=== PATIENT | female | born 1980 | race Caucasian/White ===

== ENCOUNTER 2022-04-26 10:44 | Emergency (ER) | payer MEDICAID, SELFPAY ==
[2022-04-26 11:15] VITALS: BP 127/85; PULSE 101; RESP 18; TEMP 37.1; O2SAT 100; BMI 29.5
[2022-04-26 11:35] LABS: MANUAL DIFF FLAG NO
[2022-04-26 11:38] LABS: Basophils Percent Auto 0.1 % (0-2); Eosinophils Percent Auto 0.1 % (0-4); Hematocrit 31.9 % (37.0-47.0); Imm Gran Abs Auto 0.17 X10*3/uL (0.00-0.03); Lymphocytes Absolute Auto 0.8 X10*3/uL (1.2-4.9); Lymphocytes Percent Auto 4.7 % (20-40); Mean Corpuscular HGB Conc 34.5 g/dl (31.0-35.0); Mean Corpuscular Hemoglobin 32.3 pg (27.0-33.0); Mean Corpuscular Volume 93.5 fL (80.0-98.0); Mean Platelet Volume 9.6 fL (9.4-12.3); Monocytes Absolute Auto 1.2 X10*3/uL (0.1-1.2); Monocytes Percent Auto 7.1 % (2-11); Neutrophils Absolute Auto 14.2 x10*3/uL (2.0-8.3); Platelet Count 171 X10*3/uL (160-400); Red Blood Count 3.41 X10*6/uL (4.20-5.50); Red Cell Distribution Width 12.1 % (11.0-16.0); White Blood Count 16.3 X10*3/uL (4.8-10.8)
[2022-04-26 11:55] LABS: Alanine Aminotransferase 19 U/L (0-31); Albumin Level 3.9 g/dL (3.5-5.0); Alkaline Phosphatase 76 U/L (39-117); Anion Gap 13 (12-20); Aspartate Amino Transferase 22 U/L (5-31); Bilirubin Direct 0.3 mg/dL (0.0-0.5); Bilirubin Total 0.5 mg/dL (0.0-1.0); Blood Urea Nitrogen 8 mg/dL (9-16); Calcium 8.8 mg/dL (8.4-10.2); Carbon Dioxide 28 mmol/L (22-29); Chloride 98 mmol/L (96-108); Creatinine Clr Calc Pharmacy 95.5; Estimated Glomerular Filt Rate > 60; Glucose Random 145 mg/dL (60-115); Lipase < 4 U/L (8-78); Potassium 3.9 mmol/L (3.3-5.1); Sodium 135 mmol/L (135-145); Total Protein 6.8 g/dL (6.5-8.0)
--- NOTE | 2022-04-26 16:33 | PC.NURSE ---
pt actively vomiting in wr, rn to given zofran sublingual
[2022-04-26] MEDS: Ondansetron ODT 4 MG TAB.RAPDIS TRANSLINGU (16:37)
== END 2022-04-26 21:23 | disposition left against medical advice (07) ==
PROVIDERS: Emergency Provider Emergency Medicine
DX: R11.10 Vomiting, unspecified (principal); R10.9 Unspecified abdominal pain; Z79.899 Other long term (current) drug therapy
CPT/HCPCS: 36415; 80048; 80076; 83690; 85025; 99282

== ENCOUNTER → 2022-10-30 09:31 | Outpatient (BNVA) | payer MEDICAID, SELFPAY | PROVIDERS: PCP Physician Assistant; Visit Provider Nurse Practitioner Psychiatric/Mental Health | DX: F11.20 Opioid dependence, uncomplicated (principal) | CPT/HCPCS: 99202 ==

== ENCOUNTER → 2022-11-06 14:48 | Outpatient (BNVA) | payer MEDICAID, SELFPAY | PROVIDERS: PCP Physician Assistant; Visit Provider Nurse Practitioner Psychiatric/Mental Health | DX: F11.20 Opioid dependence, uncomplicated (principal) | CPT/HCPCS: 80305; 99212 ==

== ENCOUNTER → 2022-11-19 16:08 | Outpatient (BNVA) | payer MEDICAID, SELFPAY | PROVIDERS: PCP Physician Assistant; Visit Provider Nurse Practitioner Psychiatric/Mental Health | DX: Z51.81 Encounter for therapeutic drug level monitoring (principal); F11.20 Opioid dependence, uncomplicated | CPT/HCPCS: 99212 ==

== ENCOUNTER → 2022-12-10 15:57 | Outpatient (BNVA) | payer MEDICAID, SELFPAY | PROVIDERS: PCP Physician Assistant; Visit Provider Nurse Practitioner Psychiatric/Mental Health | DX: Z13.89 Encounter for screening for other disorder (principal) ==

== ENCOUNTER → 2023-02-08 15:11 | Outpatient (BNVA) | payer OTHER, SELFPAY | PROVIDERS: PCP Physician Assistant; Visit Provider Nurse Practitioner Psychiatric/Mental Health | DX: F11.20 Opioid dependence, uncomplicated (principal); Z51.81 Encounter for therapeutic drug level monitoring; Z79.899 Other long term (current) drug therapy | CPT/HCPCS: 99212 ==

== ENCOUNTER → 2023-03-15 15:01 | Outpatient (BNVA) | payer OTHER, SELFPAY | PROVIDERS: PCP Physician Assistant; Visit Provider Nurse Practitioner Psychiatric/Mental Health | DX: Z51.81 Encounter for therapeutic drug level monitoring (principal); F11.20 Opioid dependence, uncomplicated | CPT/HCPCS: 99212 ==

== ENCOUNTER 2023-04-16 16:00 | Outpatient (AMB) | payer MEDICAID, SELFPAY ==
--- NOTE | 2023-04-16 16:01 | MHC.OFFVIS ---
Intake Vital Signs 04/16/23 16:07 BP 124/72 Blood Pressure Location Lt radial Position Sitting Pulse 74 Pulse Source Pulse Oximeter Pulse Oximetry (%) 96 Oxygen Delivery Method Room Air Intake Visit Reasons: MAT Visit Intake Note: the patient presents for a mat visit Technical Lead Required: No Allergies amoxicillin Allergy (Verified 04/16/23 16:08) Vomiting Do you need a note to return to daycare/school/sports/work: No HPI MAT Visit HPI Details Patient presents for OUD follow up Tearful during visit, sharing challenges in her relationship. Reporting her partner is not longer living with her, and is unable to return to her home. Reports DCF came to her home. Denies any issues with recovery, her mother is staying with her but will be returning home soon. Review of Systems Const Reports as per HPI Physical Exam Vital Signs: Last Vital Signs Pulse 74 04/16/23 16:07 BP 124/72 04/16/23 16:07 Pulse Ox 96 04/16/23 16:07 Oxygen Delivery Method Room Air 04/16/23 16:07 Const General: cooperative, healthy appearing and anxious Psych Appearance: well kempt Mental Status: mental status grossly normal Speech and movement: Clear speech present Affect: Sad affect present Attitude: cooperative Thought process: Normal thought process present Thought content: Normal thought content present Insight: Good insight present (Psych) Judgement: Good judgement present (Psych) Assessment & Plan Assessment & Plan (1) Opioid use disorder: Code(s): F11.90 - Opioid use, unspecified, uncomplicated Plan: continue suboxone at current dose, changed from 8mg+4mg to 12mg film relapse prevention discussion follow up 4 weeks Medications: New buprenorphine-naloxone 12-3 mg (Suboxone) 1 film sublingual DAILY 30 ea 0RF Coding Level of Care Code Est Pt Level 3 (47730) Diagnoses Opioid use disorder F11.90
[2023-04-16 16:07] VITALS: BP 124/72; PULSE 74; O2SAT 96
== END 2023-04-16 16:30 | disposition home or self-care (01) ==
LOC: HO.HCC 16:00
PROVIDERS: PCP Physician Assistant; Visit Provider Nurse Practitioner Psychiatric/Mental Health
DX: F11.90 Opioid use, unspecified, uncomplicated (principal)
CPT/HCPCS: 99213

== ENCOUNTER → 2023-04-16 16:00 | Outpatient (BNVA) | payer MEDICAID, SELFPAY | PROVIDERS: PCP Physician Assistant; Visit Provider Nurse Practitioner Psychiatric/Mental Health | DX: F11.20 Opioid dependence, uncomplicated (principal); Z63.79 Other stressful life events affecting family and household; Z51.81 Encounter for therapeutic drug level monitoring; Z79.899 Other long term (current) drug therapy | CPT/HCPCS: 99213 ==

== ENCOUNTER 2023-05-14 13:23 | Outpatient (AMB) | payer MEDICAID, SELFPAY ==
--- NOTE | 2023-05-14 13:32 | A.OFFVIS_ITS ---
Intake Intake Visit Reasons: MAT Visit Allergies amoxicillin Allergy (Verified 04/16/23 16:08) Vomiting HPI MAT Visit HPI Details Pt presents for OUD treatment follow up Currently being prescribed Suboxone 12 mg daily Denies any side effects related to medication Engaged in outpt treatment Requesting dose be changed back to 8 mg and 4 mg. Patient states that things are going well at home and feels that DCF is being very supportive. Review of Systems Const Reports as per HPI and Reports no additional complaints Physical Exam Const General: cooperative, healthy appearing and anxious Psych Appearance: well kempt Mental Status: mental status grossly normal Speech and movement: Clear speech present Affect: normal affect Attitude: cooperative Thought process: Normal thought process present Thought content: Normal thought content present Insight: Good insight present (Psych) Judgement: Good judgement present (Psych) Assessment & Plan Assessment & Plan (1) Opioid use disorder: Code(s): F11.90 - Opioid use, unspecified, uncomplicated Plan: * continue suboxone at current dose * relapse prevention discussion * follow up 4 weeks Medications: New buprenorphine-naloxone 4-1 mg (Suboxone) total of 12mg daily 1 film sublingual DAILY 30 ea 0RF buprenorphine-naloxone 8-2 mg (Suboxone) 1 film sublingual DAILY 30 ea 0RF Discontinued buprenorphine-naloxone 12-3 mg (Suboxone) Discontinued Reason: None 1 film sublingual DAILY 30 ea 0RF Coding Level of Care Code Est Pt Level 3 (75405) Diagnoses Opioid use disorder F11.90
== END 2023-05-14 13:52 | disposition home or self-care (01) ==
LOC: HO.HCC 13:23
PROVIDERS: PCP Physician Assistant; Visit Provider Nurse Practitioner Psychiatric/Mental Health
DX: F11.90 Opioid use, unspecified, uncomplicated (principal)
CPT/HCPCS: 99213

== ENCOUNTER → 2023-05-14 13:23 | Outpatient (BNVA) | payer MEDICAID, SELFPAY | PROVIDERS: PCP Physician Assistant; Visit Provider Nurse Practitioner Psychiatric/Mental Health | DX: F11.20 Opioid dependence, uncomplicated (principal) | CPT/HCPCS: 99213 ==

== ENCOUNTER 2023-06-18 13:42 | Outpatient (AMB) | payer MEDICAID, SELFPAY ==
[2023-06-18 14:18] VITALS: BP 120/70; PULSE 74; O2SAT 97
--- NOTE | 2023-06-18 14:18 | A.OFFVIS_ITS ---
Intake Vital Signs 06/18/23 14:18 BP 120/70 Blood Pressure Location Lt radial Position Sitting Pulse 74 Pulse Source Pulse Oximeter Pulse Oximetry (%) 97 Oxygen Delivery Method Room Air Intake Visit Reasons: MAT Visit Intake Note: the patient presents for a mat visit Obstetrics Tech Required: No Allergies amoxicillin Allergy (Verified 06/18/23 14:19) Vomiting Do you need a note to return to daycare/school/sports/work: No HPI MAT Visit HPI Details Pt presents for OUD treatment follow up Currently being prescribed Suboxone 8 mg daily Denies any side effects related to medication Patient tearful during visit, upset that DCF is involved with her family. Otherwise doing well with recovery and no questions or concerns. Review of Systems Const Reports as per HPI and Reports no additional complaints Physical Exam Vital Signs: Last Vital Signs Pulse 74 06/18/23 14:18 BP 120/70 06/18/23 14:18 Pulse Ox 97 06/18/23 14:18 Oxygen Delivery Method Room Air 06/18/23 14:18 Const General: cooperative, healthy appearing and anxious Psych Appearance: well kempt Mental Status: mental status grossly normal Speech and movement: Clear speech present Affect: normal affect Attitude: cooperative Thought process: Normal thought process present Thought content: Normal thought content present Insight: Good insight present (Psych) Judgement: Good judgement present (Psych) Results AMB 14 Panel Urine Drug Screen Urine Marijuana (THC) Positive Last Edit by Leonela Lang CMA on 06/18/23 14:21 Urine Cocaine Negative Last Edit by Leonela Lang CMA on 06/18/23 14:21 Urine Morphine Negative Last Edit by Leonela Lang CMA on 06/18/23 14:21 Urine Methamphetamine Negative Last Edit by Leonela Lang CMA on 06/18/23 14:21 Urine Amphetamine Positive Last Edit by Leonela Lang CMA on 06/18/23 14:2 1 Urine Benzodiazepine Positive Last Edit by Leonela Lang CMA on 06/18/23 14:21 Urine Barbiturates Negative Last Edit by Leonela Lang CMA on 06/18/23 14: 21 Urine Methadone Negative Last Edit by Leonela Lang CMA on 06/18/23 14:21 Urine Buprenorphine Positive Last Edit by Leonela Lang CMA on 06/18/23 14 :21 Urine Tricyclic Antidepressant Positive Last Edit by Leonela Lang CMA on 06/18/23 14:21 Urine MDMA Negative Last Edit by Leonela Lang CMA on 06/18/23 14:21 Urine Oxycodone Negative Last Edit by Leonela Lang CMA on 06/18/23 14:21 Urine Phencyclidine Negative Last Edit by Leonela Lang CMA on 06/18/23 14 :21 Urine Propoxyphene Negative Last Edit by Leonela Lang CMA on 06/18/23 14: 21 Results Reviewed Results Reviewed: Laboratory Last Values POC Urine Buprenorphine Positive 06/18/23 14:20 POC Urine Morphine Negative 06/18/23 14:20 POC Urine Oxycodone Negative 06/18/23 14:20 POC Urine Methadone Negative 06/18/23 14:20 POC Urine Propoxyphene Negative 06/18/23 14:20 POC Urine Barbiturates Negative 06/18/23 14:20 POC U Tricyclic Antidpr Positive 06/18/23 14:20 POC Urine PCP Negative 06/18/23 14:20 POC Ur Amphetamines Positive 06/18/23 14:20 POC Ur Methamphetamine Negative 06/18/23 14:20 POC Urine MDMA Negative 06/18/23 14:20 POC Ur Benzodiazepine Positive 06/18/23 14:20 POC Urine Cocaine Negative 06/18/23 14:20 POC Ur Marijuana (THC) Positive 06/18/23 14:20 Assessment & Plan Assessment & Plan (1) Opioid use disorder: Code(s): F11.90 - Opioid use, unspecified, uncomplicated Plan: * continue suboxone at current dose * relapse prevention discussion * follow up 4 weeks Orders: Orders AMB 14 Panel Urine Drug Screen 06/18/23 Z51.81 - Encounter for therapeutic drug level monitoring Medications: Refilled buprenorphine-naloxone 4-1 mg (Suboxone) total of 12mg daily 1 film sublingual DAILY 30 ea 0RF buprenorphine-naloxone 8-2 mg (Suboxone) 1 film sublingual DAILY 30 ea 0RF Coding Level of Care Code Est Pt Level 3 (80173) Diagnoses Opioid use disorder F11.90
== END 2023-06-18 14:44 | disposition home or self-care (01) ==
LOC: HO.HCC 13:42
PROVIDERS: PCP Physician Assistant; Visit Provider Nurse Practitioner Psychiatric/Mental Health
DX: F11.90 Opioid use, unspecified, uncomplicated (principal)
CPT/HCPCS: 99213

== ENCOUNTER → 2023-06-18 13:42 | Outpatient (BNVA) | payer MEDICAID, SELFPAY | PROVIDERS: PCP Physician Assistant; Visit Provider Nurse Practitioner Psychiatric/Mental Health | DX: F11.20 Opioid dependence, uncomplicated (principal) | CPT/HCPCS: 80305; 99212 ==

== ENCOUNTER 2023-07-24 21:50 | Emergency (ER) | payer MEDICAID, SELFPAY ==
[2023-07-24 22:38] VITALS: BP 141/84; PULSE 112; RESP 18; TEMP 36.6; O2SAT 95; BMI 34.1
--- NOTE | 2023-07-25 00:26 | ED_ITS ---
HPI - General Adult General Chief complaint: General Medical Stated complaint: Parasites (?), fever, confusion Time Seen by Provider: 07/25/23 00:25 Source: patient Mode of arrival: ambulatory Limitations: no limitations History of Present Illness HPI narrative: 43-year-old female with a history of obstructive sleep apnea, Ailyn's thyroiditis, opiate use disorder on Suboxone who presents emergency department for evaluation of parasites coming out of her body pain. Patient showed me multiple excoriated areas on her skin where she states she has picked out parasites. She states that parasites are coming out of her nose, are in her spit, coming out of her stool and her vagina. She states that she was at [employer] eating a donut and then opened the done and found that it was filled with parasites. The patient states she has been to least 5 different hospital and has not gotten any help. She told me that she is scared her life . Patient's boyfriend is here and he also has been pulling parasites out of his skin. Patient also told me that these parasites were dormant in her air conditioner and started to coime alive and activated when they turned on the heat Related Data Home Medications Medication Instructions Recorded Confirmed cetirizine 10 mg tablet 10 mg PO DAILY PRN 10/30/22 10/30/22 dextroamphetamine-amphetamine 10 10 mg PO TID 10/30/22 10/30/22 mg tablet (Adderall) elderberry fruit 350 mg capsule mg PO 10/30/22 10/30/22 hydroxyzine HCl 50 mg tablet 50 mg PO BEDTIME 10/30/22 10/30/22 levothyroxine 100 mcg capsule 100 mcg PO DAILY 10/30/22 10/30/22 (Tirosint) Previous Rx's Medication Instructions Recorded polyethylene glycol 3350 17 gram 17 g PO DAILY #30 ea 11/11/22 oral powder packet (Miralax) naloxone 4 mg/actuation nasal 4 mg intranasal Q2M PRN opioid 04/28/23 spray (Narcan) overdose #2 ea buprenorphine 4 mg-naloxone 1 mg 1 film sublingual DAILY #30 ea 06/18/23 sublingual film (Suboxone) buprenorphine 8 mg-naloxone 2 mg 1 film sublingual DAILY #30 ea 06/18/23 sublingual film (Suboxone) Allergies Allergy/AdvReac Type Severity Reaction Status Date / Time amoxicillin Allergy Vomiting Verified 06/18/23 14:19 sulfamethoxazole Allergy Diarrhea Verified 07/24/23 22:48 [From Bactrim] trimethoprim [From Bactrim] Allergy Diarrhea Verified 07/24/23 22:48 Review of Systems Review of Systems: Yes all other systems are reviewed and are negative [facility] Social History Social History Advance Directives: No Advance Directives Information Provided: Yes Physical Exam ED Vital Signs: Vital Signs - 24 hr 07/24/23 22:38 Temperature 97.8 F Pulse Rate 112 H Respiratory Rate 18 Blood Pressure 141/84 H Pulse Oximetry 95 Oxygen Delivery Method Room Air BMI result Body Mass Index 34.1 Vital signs were normal Exam: General: Awake, alert in no distress Skin : patient has multiple excoriated lesion that are consistent with her digging into her skin with her nails. Medical Decision Making Medical Decision Making MDM Narrative: 43-year-old female who presents emergency department for evaluation of parasites that are under her skin, in her spit, in her stool and her nostrils. Patient's exam is consistent with picking her skin in areas where she believes she has parasites. Patient had a bag full of parasites specimens which consisted of leaves, pieces of skin sputum and stool stool. I did tell the patient that there would be no parasite that would be an all of these places on her body and that she has delusional parasitosis. I told her that this is most likely caused by drug use or anxiety, this pay the patient upset and she decided to leave prior to receiving her discharge instructions. Differential Diagnosis Differential Diagnoses: The differential diagnosis associated with the presentation includes Differential diagnosis includes was not limited to delusional parasitosis, anxiety, drug use Discharge Plan Discharge Clinical Impression: Delusions of parasitosis, Anxiety Patient Disposition: Home, Self-Care Additional Instructions: Delusional parasitosis often occurs when you are using drugs and can also be triggered by anxiety. The objects that you showed me are not parasites. Follow-up with your doctor in 2 days. Please return to the emergency department if your symptoms get worse or if you develop any symptoms that are concerning to you. Prescriptions: No Action naloxone [Narcan] 4 mg/actuation spray,non-aerosol 4 mg intranasal Q2M PRN (Reason: opioid overdose) Qty: 2 0RF Rx Instructions: spray 1 dose into ONE nostril; alternate nostrils w each dose until help arrives levothyroxine [Tirosint] 100 mcg capsule 100 mcg PO DAILY dextroamphetamine-amphetamine [Adderall] 10 mg tablet 10 mg PO TID Rx Instructions: administer doses at least 4-6 hours apart hydroxyzine HCl 50 mg tablet 50 mg PO BEDTIME cetirizine 10 mg tablet 10 mg PO DAILY PRN elderberry fruit 350 mg capsule PO polyethylene glycol 3350 [Miralax] 17 gram powder in packet 17 g PO DAILY Qty: 30 0RF buprenorphine-naloxone [Suboxone] 4-1 mg film 1 film sublingual DAILY Qty: 30 0RF Rx Instructions: total of 12mg daily buprenorphine-naloxone [Suboxone] 8-2 mg film 1 film sublingual DAILY Qty: 30 0RF
== END 2023-07-25 01:42 | disposition home or self-care (01) ==
PROVIDERS: Emergency Provider Emergency Medicine Emergency Medical Services
DX: F22 Delusional disorders (principal); F41.9 Anxiety disorder, unspecified; L29.9 Pruritus, unspecified; Z79.899 Other long term (current) drug therapy
CPT/HCPCS: 99283

== ENCOUNTER 2023-07-30 13:22 | Outpatient (AMB) | payer MEDICAID, SELFPAY ==
--- NOTE | 2023-07-30 14:21 | MHC.AM.SUB ---
Intake Intake Visit Reasons: MAT Visit Allergies amoxicillin Allergy (Verified 06/18/23 14:19) Vomiting sulfamethoxazole [From Bactrim] Allergy (Verified 07/24/23 22:48) Diarrhea trimethoprim [From Bactrim] Allergy (Verified 07/24/23 22:48) Diarrhea HPI MAT Visit HPI Details Patient presents via telehealh for follow up Pressured and anxious on the phone, reports feeling very concerned about having parasites and that noone believes her. Recently at [facility] for same chief complaint--notes reviewed, no evidence of parasites found. She states that she has been staying in hotels and that she is awaiting results of stool sample she submitted to her primary care provider. Has been taking suboxone, states she has been taking only 8mg and would like to remain at this dose. Denies any substance use. Review of Systems Const Reports as per HPI Assessment & Plan Assessment & Plan (1) Opioid use disorder: Code(s): F11.90 - Opioid use, unspecified, uncomplicated Plan continue 8mg daily follow up 2 weeks via telehealth Medications: Discontinued buprenorphine-naloxone 4-1 mg (Suboxone) total of 12mg daily Discontinued Reason: Patient no longer taking 1 film sublingual DAILY 30 ea 0RF Telehealth Telehealth Location of provider rendering services: practice address Location of patient: other Patient Identification confirmed using: Name, : Yes Telehealth method: voice only Patient verbally consented to treatment: Yes Patient verbally consented to billing insurance company: Yes Coding Level of Care Code Tele Est Pt Level 3 (19127) Diagnoses Opioid use disorder F11.90 Time Spent (min) 25 Comment 15 mins with patient remainder on chart review and documentation
== END 2023-07-30 13:51 | disposition home or self-care (01) ==
PROVIDERS: Visit Provider Nurse Practitioner Psychiatric/Mental Health
DX: F11.90 Opioid use, unspecified, uncomplicated (principal)
CPT/HCPCS: 99213

== ENCOUNTER → 2023-07-30 13:22 | Outpatient (BNVA) | payer MEDICAID, SELFPAY | PROVIDERS: Visit Provider Nurse Practitioner Psychiatric/Mental Health ==

== ENCOUNTER 2023-08-13 11:57 | Outpatient (AMB) | payer MEDICAID, SELFPAY ==
--- NOTE | 2023-08-13 11:59 | A.OFFVIS_ITS ---
Intake Intake Visit Reasons: MAT Visit Allergies amoxicillin Allergy (Verified 06/18/23 14:19) Vomiting sulfamethoxazole [From Bactrim] Allergy (Verified 07/24/23 22:48) Diarrhea trimethoprim [From Bactrim] Allergy (Verified 07/24/23 22:48) Diarrhea HPI MAT Visit HPI Details Patient presents for follow up Presenting as anxious and upset and quite pressured Reporting her daughter was taken out of her custody because I missed one appt here She states that tests she has completed thus far have not shown anything, however her provider has prescriber her ivermectin Pending definitive dx --unclear Denies any issues related to substance use--continues to take suboxone as prescribed. Reporting her partner is currently incarcerated. Review of Systems Const Reports as per HPI, Reports difficulty sleeping, Reports malaise and Reports poor appetite Psych Reports anxiety, Reports depression and Reports difficulty concentrating Physical Exam Const General: cooperative and anxious Nutritional Appearance: average body habitus Orientation/consciousness: patient oriented x3 Neuro General: patient oriented x3 Psych Appearance: grossly normal Speech and movement: Pressured speech present Affect: Animated affect present and Anxious affect present Attitude: cooperative Thought process: Circumstantial thought process present Insight: Limited insight present (Psych) Judgement: Fair judgement present (Psych) Results AMB 14 Panel Urine Drug Screen Urine Marijuana (THC) Positive Last Edit by Julienne Tinajero NP on 08/13/23 14:11 Urine Cocaine Negative Last Edit by Julienne Tinajero NP on 08/13/23 14:11 Urine Morphine Negative Last Edit by Julienne Tinajero NP on 08/13/23 14:11 Urine Methamphetamine Negative Last Edit by Julienne Tinajero NP on 08/13/23 14:11 Urine Amphetamine Positive Last Edit by Julienne Tinajero NP on 08/13/23 14:1 1 Urine Benzodiazepine Negative Last Edit by Julienne Tinajero NP on 08/13/23 14:11 Urine Barbiturates Negative Last Edit by Julienne Tinajero NP on 08/13/23 14: 11 Urine Methadone Negative Last Edit by Julienne Tinajero NP on 08/13/23 14:11 Urine Buprenorphine Positive Last Edit by Julienne Tinajero NP on 08/13/23 14 :11 Urine Tricyclic Antidepressant Positive Last Edit by Julienne Tinajero NP on 08/13/23 14:11 Urine MDMA Negative Last Edit by Julienne Tinajero NP on 08/13/23 14:11 Urine Oxycodone Negative Last Edit by Julienne Tinajero NP on 08/13/23 14:11 Urine Phencyclidine Negative Last Edit by Julienne Tinajero NP on 08/13/23 14 :11 Urine Propoxyphene Negative Last Edit by Julienne Tinajero NP on 08/13/23 14: 11 Results Reviewed Results Reviewed: Laboratory Last Values POC Urine Buprenorphine Positive 08/13/23 13:00 POC Urine Morphine Negative 08/13/23 13:00 POC Urine Oxycodone Negative 08/13/23 13:00 POC Urine Methadone Negative 08/13/23 13:00 POC Urine Propoxyphene Negative 08/13/23 13:00 POC Urine Barbiturates Negative 08/13/23 13:00 POC U Tricyclic Antidpr Positive 08/13/23 13:00 POC Urine PCP Negative 08/13/23 13:00 POC Ur Amphetamines Positive 08/13/23 13:00 POC Ur Methamphetamine Negative 08/13/23 13:00 POC Urine MDMA Negative 08/13/23 13:00 POC Ur Benzodiazepine Negative 08/13/23 13:00 POC Urine Cocaine Negative 08/13/23 13:00 POC Ur Marijuana (THC) Positive 08/13/23 13:00 Assessment & Plan Assessment & Plan (1) Opioid use disorder: Code(s): F11.90 - Opioid use, unspecified, uncomplicated Plan: * continue suboxone at current dose * follow up 2 weeks Orders: Orders AMB 14 Panel Urine Drug Screen Today Z51.81 - Encounter for therapeutic drug level monitoring Julienne Tinajero NP Medications: Refilled buprenorphine-naloxone 8-2 mg (Suboxone) 1 film sublingual DAILY 14 ea 0RF Meg Baron CNP Coding Level of Care Code Est Pt Level 3 (51538) Diagnoses Opioid use disorder F11.90
== END 2023-08-13 16:32 | disposition home or self-care (01) ==
LOC: HO.HCC 11:57
PROVIDERS: Visit Provider Nurse Practitioner Psychiatric/Mental Health
DX: F11.90 Opioid use, unspecified, uncomplicated (principal)
CPT/HCPCS: 99213

== ENCOUNTER → 2023-08-13 11:57 | Outpatient (BNVA) | payer MEDICAID, SELFPAY | PROVIDERS: Visit Provider Nurse Practitioner Psychiatric/Mental Health | DX: F11.20 Opioid dependence, uncomplicated (principal) | CPT/HCPCS: 80305; 99212 ==

== ENCOUNTER 2023-08-31 11:02 | Outpatient (AMB) | payer MEDICAID, SELFPAY ==
--- NOTE | 2023-08-31 11:06 | MHC.OFFVIS ---
Intake Vital Signs 08/31/23 11:18 BP 108/72 Blood Pressure Location Lt radial Position Sitting Pulse 74 Pulse Source Pulse Oximeter Pulse Oximetry (%) 90 L Oxygen Delivery Method Room Air Comment has pneumonia per patient on medication Intake Visit Reasons: mat visit Intake Note: the patient presents for a mat visit Retail Receiving Clerk Required: No Allergies amoxicillin Allergy (Verified 08/31/23 11:19) Vomiting sulfamethoxazole [From Bactrim] Allergy (Verified 08/31/23 11:19) Diarrhea trimethoprim [From Bactrim] Allergy (Verified 08/31/23 11:19) Diarrhea HPI mat visit HPI Details Patient presents for follow up. Reporting she has pneumonia. Very difficult to follow conversation as patient was tangential and circumstantial. Tearful at times sharing the challenges with having signed her rights over to her mother. Also reporting that she is no longer permitted to have contact with her BF-per DCF request. Reporting frustration and sadness with this and disagrees with rationale. At start of visit, pulse ox was 90 pulse ox retaken 99. Lung sounds diminished at the bases reports that she has been in contact with her PCP regarding her sx, I talk to them all day every day, they know I have been sick for months . Difficult to have patient answer questions directly or succinctly- Denies any issues with recovery, and denies any substance use. Review of Systems Const Reports as per HPI Physical Exam Vital Signs: Last Vital Signs Pulse 74 08/31/23 11:18 BP 108/72 08/31/23 11:18 Pulse Ox 90 L 08/31/23 11:18 Oxygen Delivery Method Room Air 08/31/23 11:18 Resp Effort & Inspection: normal respiratory effort Auscultation: wheezes and diminished lung sounds bilateral Psych Appearance: well kempt Speech and movement: Pressured speech present Affect: Labile affect present Thought process: Circumstantial thought process present and Tangential thought process present Insight: Fair insight present (Psych) Judgement: Fair judgement present (Psych) Assessment & Plan Assessment & Plan (1) Opioid use disorder: Code(s): F11.90 - Opioid use, unspecified, uncomplicated Plan: continue suboxone at current dose encouraged to continue connecting with provider regarding respiratory sx follow up 3 weeks Medications: Refilled buprenorphine-naloxone 8-2 mg (Suboxone) 1 film sublingual DAILY 22 ea 0RF Coding Level of Care Code Est Pt Level 3 (23212) Diagnoses Opioid use disorder F11.90
[2023-08-31 11:18] VITALS: BP 108/72; PULSE 74; O2SAT 90
== END 2023-08-31 11:53 | disposition home or self-care (01) ==
PROVIDERS: Visit Provider Nurse Practitioner Psychiatric/Mental Health
DX: F11.90 Opioid use, unspecified, uncomplicated (principal)
CPT/HCPCS: 99213

== ENCOUNTER → 2023-08-31 11:02 | Outpatient (BNVA) | payer MEDICAID, SELFPAY | PROVIDERS: Visit Provider Nurse Practitioner Psychiatric/Mental Health | DX: F11.20 Opioid dependence, uncomplicated (principal) | CPT/HCPCS: 99212 ==

== ENCOUNTER 2023-09-21 13:13 | Outpatient (AMB) | payer OTHER, SELFPAY ==
--- NOTE | 2023-09-21 13:17 | A.OFFVIS_ITS ---
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 Required: No Allergies amoxicillin Allergy (Verified 09/21/23 13:18) Vomiting sulfamethoxazole [From Bactrim] Allergy (Verified 09/21/23 13:18) Diarrhea trimethoprim [From Bactrim] Allergy (Verified 09/21/23 13:18) Diarrhea Do you need a note to return to daycare/school/sports/work: No HPI MAT Visit HPI Details Patient presents for follow up Appears to be in good spirits Reports paracites have resolved Concerned about problem list has OUD as dx and not OUD in remission--this health science writer asuncion Discussed cocaine use that was found on UDS while at [facility] and DCF became aware and impact of that Still showing limited insight regarding relationship and how that was impacting her recovery [facility] Medical History (Updated 09/21/23 @ 13:43 by Meg Baron CNP) Opioid use disorder Review of Systems Const Reports as per HPI Physical Exam Vital Signs: Last Vital Signs Pulse 74 09/21/23 13:28 BP 118/72 09/21/23 13:28 Pulse Ox 99 09/21/23 13:28 Oxygen Delivery Method Room Air 09/21/23 13:28 Const General: cooperative, healthy appearing and anxious Orientation/consciousness: patient oriented x3 Neuro General: patient oriented x3 Results AMB 14 Panel Urine Drug Screen Urine Marijuana (THC) Positive Last Edit by Leonela Lang CMA on 09/21/23 14:19 Urine Cocaine Negative Last Edit by Leonela Lang CMA on 09/21/23 14:19 Urine Morphine Negative Last Edit by Leonela Lang CMA on 09/21/23 14:19 Urine Methamphetamine Negative Last Edit by Leonela Lang CMA on 09/21/23 14:19 Urine Amphetamine Negative Last Edit by Leonela Lang CMA on 09/21/23 14:1 9 Urine Benzodiazepine Negative Last Edit by Leonela Lang CMA on 09/21/23 14:19 Urine Barbiturates Negative Last Edit by Leonela Lang CMA on 09/21/23 14: 19 Urine Methadone Negative Last Edit by Leonela Lang CMA on 09/21/23 14:19 Urine Buprenorphine Positive Last Edit by Leonela Lang CMA on 09/21/23 14 :19 Urine Tricyclic Antidepressant Negative Last Edit by Leonela Lang CMA on 09/21/23 14:19 Urine MDMA Negative Last Edit by Leonela Lang CMA on 09/21/23 14:19 Urine Oxycodone Negative Last Edit by Leonela Lang CMA on 09/21/23 14:19 Urine Phencyclidine Negative Last Edit by Leonela Lang CMA on 09/21/23 14 :19 Urine Propoxyphene Negative Last Edit by Leonela Lang CMA on 09/21/23 14: 19 Results Reviewed Results Reviewed: Laboratory Last Values POC Urine Buprenorphine Positive 09/21/23 14:10 POC Urine Morphine Negative 09/21/23 14:10 POC Urine Oxycodone Negative 09/21/23 14:10 POC Urine Methadone Negative 09/21/23 14:10 POC Urine Propoxyphene Negative 09/21/23 14:10 POC Urine Barbiturates Negative 09/21/23 14:10 POC U Tricyclic Antidpr Negative 09/21/23 14:10 POC Urine PCP Negative 09/21/23 14:10 POC Ur Amphetamines Negative 09/21/23 14:10 POC Ur Methamphetamine Negative 09/21/23 14:10 POC Urine MDMA Negative 09/21/23 14:10 POC Ur Benzodiazepine Negative 09/21/23 14:10 POC Urine Cocaine Negative 09/21/23 14:10 POC Ur Marijuana (THC) Positive 09/21/23 14:10 Assessment & Plan Assessment & Plan (1) Opioid use disorder, moderate, in sustained remission: Code(s): F11.21 - Opioid dependence, in remission Plan: * continue suboxone at current dose * follow up 4 weeks Orders: Orders AMB 14 Panel Urine Drug Screen 09/21/23 Z51.81 - Encounter for therapeutic drug level monitoring Medications: Refilled buprenorphine-naloxone 8-2 mg (Suboxone) 1 film sublingual DAILY 30 ea 0RF Coding Level of Care Code Est Pt Level 3 (89742) Diagnoses Opioid use disorder, moderate, in sustained remission F11.21
[2023-09-21 13:28] VITALS: BP 118/72; PULSE 74; O2SAT 99
== END 2023-09-21 15:32 | disposition home or self-care (01) ==
PROVIDERS: Visit Provider Nurse Practitioner Psychiatric/Mental Health
DX: F11.21 Opioid dependence, in remission (principal)
CPT/HCPCS: 99213

== ENCOUNTER → 2023-09-21 13:13 | Outpatient (BNVA) | payer MEDICAID, SELFPAY | PROVIDERS: Visit Provider Nurse Practitioner Psychiatric/Mental Health | DX: Z51.81 Encounter for therapeutic drug level monitoring (principal); F11.21 Opioid dependence, in remission | CPT/HCPCS: 80305 ==

== ENCOUNTER 2023-10-25 13:06 | Outpatient (AMB) | payer OTHER, SELFPAY ==
--- NOTE | 2023-10-25 13:06 | A.OFFVISCC_ITS ---
Intake Intake Visit Reasons: MAT Visit Allergies amoxicillin Allergy (Verified 09/21/23 13:18) Vomiting sulfamethoxazole [From Bactrim] Allergy (Verified 09/21/23 13:18) Diarrhea trimethoprim [From Bactrim] Allergy (Verified 09/21/23 13:18) Diarrhea HPI MAT Visit HPI Details Patient presents for follow up via telehealth due to illness (RSV) Sounding very congested during call and reporting occasional fever Reports that she will be returning to work FT in the near future--her mother will not be helping her anymore financially. Has been working for [employer]. 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 - mother no longer caregiver No issues related to Suboxone [facility] Medical History (Updated 09/21/23 @ 13:43 by Meg Baron CNP) Opioid use disorder Review of Systems Const Reports as per HPI and Reports malaise Assessment & Plan Assessment & Plan (1) Opioid use disorder, moderate, in sustained remission: Code(s): F11.21 - Opioid dependence, in remission Plan: * continue suboxone at current dose * follow up 4 weeks Medications: Refilled buprenorphine-naloxone 8-2 mg (Suboxone) 1 film sublingual DAILY 30 ea 0RF Telehealth Telehealth Location of provider rendering services: practice address Location of patient: address on file Patient Identification confirmed using: Name, : Yes Telehealth method: voice only Patient verbally consented to treatment: Yes Patient verbally consented to billing insurance company: Yes Coding Level of Care Code Tele Est Pt Level 3 (60165) Diagnoses Opioid use disorder, moderate, in sustained remission F11.21 Time Spent (min) 25 Comment 15 mins with patient, remainder on chart review and documentation
== END 2023-10-25 14:22 | disposition home or self-care (01) ==
PROVIDERS: Visit Provider Nurse Practitioner Psychiatric/Mental Health
DX: F11.21 Opioid dependence, in remission (principal)
CPT/HCPCS: 99213

== ENCOUNTER → 2023-10-25 13:06 | Outpatient (BNVA) | payer OTHER, SELFPAY | PROVIDERS: Visit Provider Nurse Practitioner Psychiatric/Mental Health | DX: Z51.81 Encounter for therapeutic drug level monitoring (principal) ==

== ENCOUNTER 2023-11-22 12:58 | Outpatient (AMB) | payer OTHER, SELFPAY ==
--- NOTE | 2023-11-22 13:01 | A.OFFVISCC_ITS ---
Intake Intake Visit Reasons: MAT Visit Allergies amoxicillin Allergy (Verified 09/21/23 13:18) Vomiting sulfamethoxazole [From Bactrim] Allergy (Verified 09/21/23 13:18) Diarrhea trimethoprim [From Bactrim] Allergy (Verified 09/21/23 13:18) Diarrhea HPI MAT Visit HPI Details Patient presents for TOREY treatment follow up Reports that she has been sick with RSV and bronchitis Still interviewing for jobs At home with her daughter Asking to come in for UDS--this news writer advised patient that next in office visit UDS could be collected. [facility] Medical History (Updated 09/21/23 @ 13:43 by Meg Baron CNP) Opioid use disorder Review of Systems Const Reports as per HPI Assessment & Plan Assessment & Plan (1) Opioid use disorder, moderate, in sustained remission: Code(s): F11.21 - Opioid dependence, in remission Plan: * continue suboxone at current dose * next visit in office * MassPat shows suboxone was sent by a provider who does not work in this office. Not yet due for refill--RN will follow up Medications: Refilled buprenorphine-naloxone 8-2 mg (Suboxone) 1 film sublingual DAILY 30 ea 0RF Telehealth Telehealth Location of provider rendering services: practice address Location of patient: address on file Patient Identification confirmed using: Name, : Yes Telehealth method: voice only Patient verbally consented to treatment: Yes Patient verbally consented to billing insurance company: Yes Coding Level of Care Code Tele Est Pt Level 3 (32985) Diagnoses Opioid use disorder, moderate, in sustained remission F11.21 Time Spent (min) 25 Comment 15 mins with patient remainder on chart review and documentation
== END 2023-11-22 13:35 | disposition home or self-care (01) ==
PROVIDERS: Visit Provider Nurse Practitioner Psychiatric/Mental Health
DX: F11.21 Opioid dependence, in remission (principal)
CPT/HCPCS: 99213

== ENCOUNTER → 2023-11-22 12:58 | Outpatient (BNVA) | payer OTHER, SELFPAY | PROVIDERS: Visit Provider Nurse Practitioner Psychiatric/Mental Health | DX: Z51.81 Encounter for therapeutic drug level monitoring (principal); F11.21 Opioid dependence, in remission ==

== ENCOUNTER 2023-12-21 16:02 | Outpatient (AMB) | payer OTHER, SELFPAY ==
--- NOTE | 2023-12-21 16:04 | MHC.AM.SUB ---
Intake Vital Signs 12/21/23 16:27 BP 110/80 Blood Pressure Location Lt radial Position Sitting Pulse 117 H Pulse Source Pulse Oximeter Pulse Oximetry (%) 96 Oxygen Delivery Method Room Air Intake Visit Reasons: MAT Intake Note: The patient presents for a mat visit Enrollment Management Manager Required: No Allergies amoxicillin Allergy (Verified 12/21/23 16:07) Vomiting sulfamethoxazole [From Bactrim] Allergy (Verified 12/21/23 16:07) Diarrhea trimethoprim [From Bactrim] Allergy (Verified 12/21/23 16:07) Diarrhea Do you need a note to return to daycare/school/sports/work: No HPI MAT HPI Details Patient presents for MAT visit Reports she is going through a difficult time due to DCF involvement, feels as though they are out to get her Stating DCF wants to take her daughter because she missed her MAT appointment the day prior Intense eye contact throughout visit, tangential, pressured speech, labile affect, tearful at times States she is late to appointment because she left her keys at home due to anxiety When this group underwriter questioned her about her most recent suboxone refill (refilled by a provider not associated with this practice), she became explosive, raised voice, and insisting that she only gets her suboxone through the [facility], accusatory stating this group underwriter is 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 Upon review of MA pat- last suboxone refill was 11/03 for 30 days, when asked how she has managed for the past few weeks she reports she had extras [facility] Medical History (Updated 09/21/23 @ 13:43 by Meg Baron CNP) Opioid use disorder Review of Systems Const Reports as per HPI Psych Reports anxiety, Reports panic attacks, Reports paranoia, Denies homicidal ideation and Denies suicidal ideation Physical Exam Vital Signs: Last Vital Signs Pulse 117 H 12/21/23 16:27 BP 110/80 12/21/23 16:27 Pulse Ox 96 12/21/23 16:27 Oxygen Delivery Method Room Air 12/21/23 16:27 Const General: anxious Resp Effort & Inspection: normal respiratory effort Psych Appearance: grossly normal Speech and movement: Pressured speech present Affect: Labile affect present, Anxious affect present and Irritable affect present Attitude: Belligerent attititude/behavior present and Guarded attititude/behavior present Thought process: Tangential thought process present Thought content: Paranoid delusions present Results AMB 14 Panel Urine Drug Screen Urine Marijuana (THC) Positive Last Edit by Leonela Lang CMA on 12/21/23 16:29 Urine Cocaine Negative Last Edit by Leonela Lang CMA on 12/21/23 16:29 Urine Morphine Negative Last Edit by Leonela Lang CMA on 12/21/23 16:29 Urine Methamphetamine Negative Last Edit by Leonela Lang CMA on 12/21/23 16:29 Urine Amphetamine Positive Last Edit by Leonela Lang CMA on 12/21/23 16:29 Urine Benzodiazepine Negative Last Edit by Leonela Lang CMA on 12/21/23 16:29 Urine Barbiturates Negative Last Edit by Leonela Lang CMA on 12/21/23 16:29 Urine Methadone Negative Last Edit by Leonela Lang CMA on 12/21/23 16:29 Urine Buprenorphine Positive Last Edit by Leonela Lang CMA on 12/21/23 16:29 Urine Tricyclic Antidepressant Positive Last Edit by Leonela Lang CMA on 12/21/23 16:29 Urine MDMA Negative Last Edit by Leonela Lang CMA on 12/21/23 16:29 Urine Oxycodone Negative Last Edit by Leonela Lang CMA on 12/21/23 16:29 Urine Phencyclidine Negative Last Edit by Leonela Lang CMA on 12/21/23 16:29 Urine Propoxyphene Negative Last Edit by Leonela Lang CMA on 12/21/23 16:29 Results Reviewed Results Reviewed: Laboratory Last Values POC Urine Buprenorphine Positive 12/21/23 16:08 POC Urine Morphine Negative 12/21/23 16:08 POC Urine Oxycodone Negative 12/21/23 16:08 POC Urine Methadone Negative 12/21/23 16:08 POC Urine Propoxyphene Negative 12/21/23 16:08 POC Urine Barbiturates Negative 12/21/23 16:08 POC U Tricyclic Antidpr Positive 12/21/23 16:08 POC Urine PCP Negative 12/21/23 16:08 POC Ur Amphetamines Positive 12/21/23 16:08 POC Ur Methamphetamine Negative 12/21/23 16:08 POC Urine MDMA Negative 12/21/23 16:08 POC Ur Benzodiazepine Negative 12/21/23 16:08 POC Urine Cocaine Negative 12/21/23 16:08 POC Ur Marijuana (THC) Positive 12/21/23 16:08 Assessment & Plan Assessment & Plan (1) Opioid use disorder, moderate, in sustained remission: Code(s): F11.21 - Opioid dependence, in remission Plan -Mass pat reviewed -Rx for suboxone sent in to pt pharmacy -Consulted with Meg Baron APRN and CARE team regarding next step for patient care, Celena from CARE team to call [facility] Co-response to do a check in on patient today Orders: Orders AMB 14 Panel Urine Drug Screen 12/21/23 Z51.81 - Encounter for therapeutic drug level monitoring Medications: New buprenorphine-naloxone 8-2 mg 1 film buccal DAILY 30 ea 0RF Discontinued buprenorphine-naloxone 8-2 mg (Suboxone) Discontinued Reason: Duplicate 1 film sublingual DAILY 30 ea 0RF Coding Level of Care Code Est Pt Level 3 (27097) Diagnoses Opioid use disorder, moderate, in sustained remission F11.21
[2023-12-21 16:27] VITALS: BP 110/80; PULSE 117; O2SAT 96
== END 2023-12-21 16:54 | disposition home or self-care (01) ==
LOC: HO.HCC 16:02
PROVIDERS: Visit Provider Nurse Practitioner Family
DX: F11.21 Opioid dependence, in remission (principal)
CPT/HCPCS: 99213

== ENCOUNTER → 2023-12-21 16:02 | Outpatient (BNVA) | payer OTHER, SELFPAY | PROVIDERS: Visit Provider Nurse Practitioner Family | DX: F11.20 Opioid dependence, uncomplicated (principal) | CPT/HCPCS: 80305 ==

== ENCOUNTER 2024-01-18 14:50 | Outpatient (AMB) | payer OTHER, SELFPAY ==
--- NOTE | 2024-01-18 15:03 | A.OFFVISCC_ITS ---
Intake Vital Signs 01/18/24 15:31 BP 120/80 Blood Pressure Location Rt radial Position Sitting Respiration 19 Pulse 88 Pulse Source Pulse Oximeter Pulse Oximetry (%) 98 Intake Visit Reasons: MAT Allergies amoxicillin Allergy (Verified 12/21/23 16:07) Vomiting sulfamethoxazole [From Bactrim] Allergy (Verified 12/21/23 16:07) Diarrhea trimethoprim [From Bactrim] Allergy (Verified 12/21/23 16:07) Diarrhea HPI MAT HPI Details Patient left prior to this telegraphic typewriter installer making contact with her. [facility] Medical History (Updated 09/21/23 @ 13:43 by Meg Baron CNP) Opioid use disorder Results AMB 14 Panel Urine Drug Screen Urine Marijuana (THC) Positive Last Edit by Anette Morales RN on 01/18/24 15:31 Urine Cocaine Negative Last Edit by Anette Morales RN on 01/18/24 15:31 Urine Morphine Negative Last Edit by Anette Morales RN on 01/18/24 15:31 Urine Methamphetamine Negative Last Edit by Anette Morales RN on 01/18/24 15:31 Urine Amphetamine Positive Last Edit by Anette Morales RN on 01/18/24 15:31 Urine Benzodiazepine Negative Last Edit by Anette Morales RN on 01/18/24 15 :31 Urine Barbiturates Negative Last Edit by Anette Morales RN on 01/18/24 15:3 1 Urine Methadone Negative Last Edit by Anette Morales RN on 01/18/24 15:31 Urine Buprenorphine Positive Last Edit by Anette Morales RN on 01/18/24 15: 31 Urine Tricyclic Antidepressant Negative Last Edit by Anette Morales RN on 01/18/24 15:31 Urine MDMA Negative Last Edit by Anette Morales RN on 01/18/24 15:31 Urine Oxycodone Negative Last Edit by Anette Morales RN on 01/18/24 15:31 Urine Phencyclidine Negative Last Edit by Anette Morales RN on 01/18/24 15: 31 Urine Propoxyphene Negative Last Edit by Anette Morales RN on 01/18/24 15:3 1 Assessment & Plan Assessment & Plan (1) Opioid use disorder, moderate, in sustained remission: Code(s): F11.21 - Opioid dependence, in remission Plan: -Patient to schedule follow up visit Orders: Orders AMB 14 Panel Urine Drug Screen Today F11.21 - Opioid dependence, in remission Coding Level of Care Code Left Without Being Seen Diagnoses Opioid use disorder, moderate, in sustained remission F11.21 Nursing Note Patient in office for Provider visit today, She was brought in by myself RN, urin sample obtained, when brought in room patient started to talk about her experience last visit and was upset with us, stating I dont appreciate being accused of things I didnt do , I made pt aware that she would be seeing the same provider as last time and offered her to see another, she denied this. When I went back into room moments later she was gone.
[2024-01-18 15:31] VITALS: BP 120/80; PULSE 88; RESP 19; O2SAT 98
== END 2024-01-18 15:40 | disposition left against medical advice (07) ==
LOC: HO.HCC 14:50
PROVIDERS: Visit Provider Nurse Practitioner Family
DX: F11.21 Opioid dependence, in remission (principal)

== ENCOUNTER → 2024-01-18 14:50 | Outpatient (BNVA) | payer OTHER, SELFPAY | PROVIDERS: Visit Provider Nurse Practitioner Family | DX: F11.21 Opioid dependence, in remission (principal) | CPT/HCPCS: 80305 ==

== ENCOUNTER 2024-02-14 10:33 | Outpatient (AMB) | payer OTHER, SELFPAY ==
[2024-02-14 10:54] VITALS: BP 132/88; PULSE 90; O2SAT 94
--- NOTE | 2024-02-14 10:54 | A.OFFVISCC_ITS ---
Vital Signs 02/14/24 10:54 BP 132/88 Blood Pressure Location Lt brachial Position Sitting Pulse 90 Pulse Source Pulse Oximeter Pulse Oximetry (%) 94 Oxygen Delivery Method Room Air Intake Visit Reasons: MAT Visit Allergies amoxicillin Allergy (Verified 02/14/24 10:55) Vomiting sulfamethoxazole [From Bactrim] Allergy (Verified 02/14/24 10:55) Diarrhea trimethoprim [From Bactrim] Allergy (Verified 02/14/24 10:55) Diarrhea HPI HPI MAT Visit: Details: Patient presents for follow up Will be working for [employer] unclear start date Mother was just here visiting Looking to move to [place] Tolerating current suboxone dose [facility] Medical History (Updated 09/21/23 @ 13:43 by Meg Baron CNP) Opioid use disorder Review of Systems Const Reports as per HPI ENT Reports nasal congestion Physical Exam Vital Signs: Last Vital Signs Pulse 90 02/14/24 10:54 BP 132/88 02/14/24 10:54 Pulse Ox 94 02/14/24 10:54 Oxygen Delivery Method Room Air 02/14/24 10:54 Const General: cooperative, healthy appearing and no acute distress Nutritional Appearance: average body habitus Orientation/consciousness: patient oriented x3 Limitations: no limitations Neuro General: patient oriented x3 Psych Appearance: grossly normal Speech and movement: Clear speech present Affect: normal affect Attitude: cooperative Thought process: Circumstantial thought process present Thought content: Normal thought content present Insight: Fair insight present (Psych) Judgement: Fair judgement present (Psych) Results AMB 14 Panel Urine Drug Screen Urine Marijuana (THC) Positive Last Edit by Avelina Levine CMA on 02/14/24 11 :17 Urine Cocaine Negative Last Edit by Avelina Levine CMA on 02/14/24 11:17 Urine Morphine Negative Last Edit by Avelina Levine CMA on 02/14/24 11:17 Urine Methamphetamine Negative Last Edit by Avelina Levine CMA on 02/14/24 11 :17 Urine Amphetamine Negative Last Edit by Avelina Levine CMA on 02/14/24 11:17 Urine Benzodiazepine Negative Last Edit by Avelina Levine CMA on 02/14/24 11: 17 Urine Barbiturates Negative Last Edit by Avelina Levine CMA on 02/14/24 11:17 Urine Methadone Negative Last Edit by Avelina Levine CMA on 02/14/24 11:17 Urine Buprenorphine Positive Last Edit by Avelina Levine CMA on 02/14/24 11:1 7 Urine Tricyclic Antidepressant Positive Last Edit by Avelina Levine CMA on 02/14/24 11:17 Urine MDMA Negative Last Edit by Avelina Levine CMA on 02/14/24 11:17 Urine Oxycodone Negative Last Edit by Avelina Levine CMA on 02/14/24 11:17 Urine Phencyclidine Negative Last Edit by Avelina Levine CMA on 02/14/24 11:1 7 Urine Propoxyphene Negative Last Edit by Avelina Levine CMA on 02/14/24 11:17 Results Reviewed Results Reviewed: Laboratory Last Values POC Urine Buprenorphine Positive 02/14/24 11:11 POC Urine Morphine Negative 02/14/24 11:11 POC Urine Oxycodone Negative 02/14/24 11:11 POC Urine Methadone Negative 02/14/24 11:11 POC Urine Propoxyphene Negative 02/14/24 11:11 POC Urine Barbiturates Negative 02/14/24 11:11 POC U Tricyclic Antidpr Positive 02/14/24 11:11 POC Urine PCP Negative 02/14/24 11:11 POC Ur Amphetamines Negative 02/14/24 11:11 POC Ur Methamphetamine Negative 02/14/24 11:11 POC Urine MDMA Negative 02/14/24 11:11 POC Ur Benzodiazepine Negative 02/14/24 11:11 POC Urine Cocaine Negative 02/14/24 11:11 POC Ur Marijuana (THC) Positive 02/14/24 11:11 Assessment & Plan Assessment & Plan (1) Opioid use disorder, moderate, in sustained remission: Code(s): F11.21 - Opioid dependence, in remission Category: Medical Plan: * continue suboxone at current dose * follow up 4 weeks Orders: Orders AMB 14 Panel Urine Drug Screen 02/14/24 Z51.81 - Encounter for therapeutic drug level monitoring Medications: Refilled buprenorphine-naloxone 8-2 mg 1 film buccal DAILY 30 ea 0RF
== END 2024-02-14 11:17 | disposition home or self-care (01) ==
PROVIDERS: Visit Provider Nurse Practitioner Psychiatric/Mental Health
DX: F11.21 Opioid dependence, in remission (principal)
CPT/HCPCS: 99213

== ENCOUNTER → 2024-02-14 10:33 | Outpatient (BNVA) | payer OTHER, SELFPAY | PROVIDERS: Visit Provider Nurse Practitioner Psychiatric/Mental Health | DX: F11.20 Opioid dependence, uncomplicated (principal) | CPT/HCPCS: 80305 ==

== ENCOUNTER 2024-03-20 14:11 | Outpatient (AMB) | payer OTHER, SELFPAY ==
--- NOTE | 2024-03-20 14:38 | MHC.AM.SUB ---
Intake Visit Reasons: MAT visit Allergies amoxicillin Allergy (Verified 02/14/24 10:55) Vomiting sulfamethoxazole [From Bactrim] Allergy (Verified 02/14/24 10:55) Diarrhea trimethoprim [From Bactrim] Allergy (Verified 02/14/24 10:55) Diarrhea Medication List - Last Reconciled 03/20/24 by Meg Baron CNP buprenorphine-naloxone 8-2 mg 1 film buccal DAILY cetirizine 10 mg PO DAILY PRN dextroamphetamine-amphetamine 10 mg (Adderall) 10 mg PO TID elderberry fruit mg PO hydroxyzine HCl 50 mg PO BEDTIME levothyroxine (Tirosint) 100 mcg PO DAILY naloxone 4 mg/actuation (Narcan) 4 mg intranasal Q2M PRN polyethylene glycol 3350 (Miralax) 17 grams PO DAILY HPI HPI MAT visit: Details: Patient presents for follow up Currently prescribed Suboxone 8mg daily Bright affect still hoping to move to [place] over the summer has not started to work yet denies any substance use [facility] Medical History (Updated 09/21/23 @ 13:43 by Meg Baron CNP) Opioid use disorder Review of Systems Const Reports as per HPI and Reports no additional complaints Physical Exam Const General: cooperative, healthy appearing and well groomed Nutritional Appearance: average body habitus Orientation/consciousness: patient oriented x3 Limitations: no limitations Neuro General: patient oriented x3 Psych Affect: normal affect Attitude: cooperative Thought process: Circumstantial thought process present Thought content: Normal thought content present Insight: Fair insight present (Psych) Judgement: Good judgement present (Psych) Results AMB 14 Panel Urine Drug Screen Urine Marijuana (THC) Positive Last Edit by Alexa Abrams RN on 03/20/24 15:46 Urine Cocaine Negative Last Edit by Alexa Abrams RN on 03/20/24 15:46 Urine Morphine Negative Last Edit by Alexa Abrams RN on 03/20/24 15:46 Urine Methamphetamine Negative Last Edit by Alexa Abrams RN on 03/20/24 15:46 Urine Amphetamine Negative Last Edit by Alexa Abrams RN on 03/20/24 15:46 Urine Benzodiazepine Negative Last Edit by Alexa Abrams RN on 03/20/24 15:46 Urine Barbiturates Negative Last Edit by Alexa Abrams RN on 03/20/24 15:46 Urine Methadone Negative Last Edit by Alexa Abrams RN on 03/20/24 15:46 Urine Buprenorphine Positive Last Edit by Alexa Abrams RN on 03/20/24 15:46 Urine Tricyclic Antidepressant Negative Last Edit by Alexa Abrams RN on 03/20/24 15:46 Urine MDMA Negative Last Edit by Alexa Abrams RN on 03/20/24 15:46 Urine Oxycodone Negative Last Edit by Alexa Abrams RN on 03/20/24 15:46 Urine Phencyclidine Negative Last Edit by Alexa Abrams RN on 03/20/24 15:46 Urine Propoxyphene Negative Last Edit by Alexa Abrams RN on 03/20/24 15:46 Results Reviewed Results Reviewed: Laboratory Last Values POC Urine Buprenorphine Positive 03/20/24 15:43 POC Urine Morphine Negative 03/20/24 15:43 POC Urine Oxycodone Negative 03/20/24 15:43 POC Urine Methadone Negative 03/20/24 15:43 POC Urine Propoxyphene Negative 03/20/24 15:43 POC Urine Barbiturates Negative 03/20/24 15:43 POC U Tricyclic Antidpr Negative 03/20/24 15:43 POC Urine PCP Negative 03/20/24 15:43 POC Ur Amphetamines Negative 03/20/24 15:43 POC Ur Methamphetamine Negative 03/20/24 15:43 POC Urine MDMA Negative 03/20/24 15:43 POC Ur Benzodiazepine Negative 03/20/24 15:43 POC Urine Cocaine Negative 03/20/24 15:43 POC Ur Marijuana (THC) Positive 03/20/24 15:43 Assessment & Plan Assessment & Plan (1) Opioid use disorder, moderate, in sustained remission: Code(s): F11.21 - Opioid dependence, in remission Category: Medical Plan: continue suboxone at current dose follow up 2 months due to provider vacation Orders: Orders AMB 14 Panel Urine Drug Screen 03/20/24 F11.21 - Opioid dependence, in remission Medications: Refilled buprenorphine-naloxone 8-2 mg 1 film buccal DAILY 30 ea 1RF
== END 2024-03-20 14:50 | disposition home or self-care (01) ==
PROVIDERS: Visit Provider Nurse Practitioner Psychiatric/Mental Health
DX: F11.21 Opioid dependence, in remission (principal)
CPT/HCPCS: 99213

== ENCOUNTER → 2024-03-20 14:11 | Outpatient (BNVA) | payer OTHER, SELFPAY | PROVIDERS: Visit Provider Nurse Practitioner Psychiatric/Mental Health | DX: F11.21 Opioid dependence, in remission (principal); Z51.81 Encounter for therapeutic drug level monitoring | CPT/HCPCS: 80305 ==